=== PATIENT | female | born 1950 | race Caucasian/White ===

== ENCOUNTER 2017-06-28 20:05 | Emergency (ER) | payer MEDICARE, MEDICAID ==
[~2017-06-28] VITALS: Ht 157.5 cm; Wt 63.5 kg
[2017-06-28 20:05] VITALS: BP 149/82
[~2017-06-28 20:05] MED LIST: HYDR8TAB2 PO
--- NOTE | 2017-06-28 20:30 | NUR ---
PT REFUSED TO HAVE HER BLOOD SUGAR CHECKED.
== END 2017-06-28 20:50 | disposition home or self-care (01) ==
LOC: ER 20:09
DX: F11.20 Opioid dependence, uncomplicated (principal); R42 Dizziness and giddiness; G89.29 Other chronic pain; E11.9 Type 2 diabetes mellitus without complications; Z88.8 Allergy status to other drugs, medicaments and biological substances
CPT/HCPCS: 82962-TC; A4606; Z7610

== ENCOUNTER 2017-07-23 20:37 | Inpatient (IN) | payer MEDICARE ==
[~2017-07-23] VITALS: Ht 160 cm; Wt 60.3 kg
[2017-07-24] VITALS: BP 153/82
[2017-07-24] MEDS ORDERED: IV NS 0.9% 1,000 ML IV PRN (00:08)
[2017-07-24 00:25] VITALS: BP 153/82
--- NOTE | 2017-07-24 00:25 | NUR ---
MS GALINDO OPENING NOTES: RECEIVED PT FROM PARAMEDICS FROM [facility]. PT IS A/OX 3-4. PT HAS IV ON R AC #20G AND IS PATENT AND INTACT. PT COMPLAINS OF BILATERAL 5/10 FOOT PAIN. AWAITING FOR ORDERS TO BE PUT IN. BILATERAL LOWER LEGS ELEVATED SWELLING AND REDNESS IS NOTED. CALL LIGHT WITHIN PT'S REACH. HOB ELEVATED. BED KEPT IN LOW, LOCKED POSITION, AND SIDE RAILS X 2 UP. Addendum: 07/24/17 at 0318 by ALIREZA VAN RN PT RECEIVED ANCEF 2GM AT [facility] AT 1835. WAS ENDORSED FROM MATEO JAMES FROM [place].
[2017-07-24] MEDS ORDERED: ENOXAPARIN SODIUM 40 MG/0.4 ML DISP.SYRIN SQ SCH (00:30)
[2017-07-24] MEDS ORDERED: HYDROCODONE/APAP 5/325MG 1 EACH TABLET PO PRN (00:30)
[2017-07-24] MEDS ORDERED: ACETAMINOPHEN 325 MG TABLET PO PRN (00:30)
[2017-07-24] MEDS ORDERED: Z GUARD REMEDY 2 OZ OINT TP PRN (00:30)
[2017-07-24] MEDS ORDERED: MAG HYDROX/AL HYDROX/SIMETH 30 ML UDC PO PRN (00:30)
[2017-07-24] MEDS ORDERED: VANCOMYCIN 1 GM in IV D5W 250 ML IV SCH (00:30)
[2017-07-24] MEDS ORDERED: ZOLPIDEM TARTRATE 5 MG TABLET PO PRN (00:30)
[2017-07-24] MEDS ORDERED: MAGNESIUM HYDROXIDE 30 ML UDC PO PRN (00:30)
[2017-07-24] MEDS ORDERED: ONDANSETRON HCL/PF 4 MG/2 ML VIAL IVP PRN (00:30)
[2017-07-24] MEDS ORDERED: VANCOMYCIN 1 GM VIAL ONE (00:50)
[2017-07-24] MEDS ORDERED: PIPERACILLIN /TAZOBACTAM 2.25 G VIAL IV ONE (00:51)
--- NOTE | 2017-07-24 01:20 | NUR ---
MS RN NOTES: DR. DELON Rehman AT BEDSIDE.
--- NOTE | 2017-07-24 04:46 | NUR ---
MS RN NOTES: ZOSYN WAS MANUALLY ENTERED SINCE BAR GUN WOULD NOT SCAN MED. MED WAS OVERRODE BY CHARGE NURSE.
[2017-07-24] MEDS ORDERED: PIPERACILLIN /TAZOBACTAM 4.5 G in IV D5W 50 ML IV SCH (05:00)
--- NOTE | 2017-07-24 07:30 | NUR ---
MS/RN Patient received Patient received from operations supervisor 2nd shift. No needs at this time, call light within reach, bed in low setting. Will continue to monitor and ensure safety.
--- NOTE | 2017-07-24 07:31 | NUR ---
MS RN CLOSING NOTES: ALL NEEDS WERE ATTENDED AND ANTICIPATED FOR PT IS IN BED RESTING AND SITTING UP. PT IS A/OX3-4. NO SOB NOTED. NO S/S OF DISTRESS NOTED AT THIS TIME. PT NOT COMPLAINING OF PAIN AT THIS TIME. BILATERAL LOWER LEGS ELEVATED SWELLING AND REDNESS IS NOTED. PT HAS IV ON R AC #20G AND IS BEING INFUSED WITH NS AT 75ML/HR. CALL LIGHT WITHIN PT'S REACH. HOB ELEVATED. BED KEPT IN LOW, LOCKED POSITION, AND SIDE RAILS X 2 UP. ENDORSED TO AM NURSE FOR MANNY.
[2017-07-24 08:00] VITALS: BP 146/74
[2017-07-24] MEDS ORDERED: CLON2TAB4 PO (08:54)
[2017-07-24] MEDS ORDERED: OMEP40CA37 PO (08:54)
[2017-07-24] MEDS ORDERED: FURO40TA5 PO (08:54)
[2017-07-24] MEDS ORDERED: TRAZ150T75 PO (08:54)
[2017-07-24] MEDS ORDERED: LEVO137T2 PO (08:54)
[2017-07-24] MEDS ORDERED: ATOR20TA PO (08:54)
[2017-07-24] MEDS ORDERED: DULO60CA45 PO (08:55)
[2017-07-24] MEDS ORDERED: FEE PK DOSING 1 MIN EA MC ONE (09:21)
--- NOTE | 2017-07-24 09:30 | NUR ---
MS/RN OOB Patoent able to get out of bed with standby assist using FWW.
--- NOTE | 2017-07-24 10:49 | NUR ---
WOUND CARE CONSULT: PT PRESENTS WITH DRY WOUNDS TO BILATERAL GREAT TOES, PRESENT ON ADMISSION. RECOMMEND DPM CONSULT. PT REFUSED FULL SKIN ASSESSMENT. CURRENT TITUS SCORE IS 17. PODIATRY CONSULT CALLED BY DR REID. WILL SEE PRN. Addendum: 07/24/17 at 1053 by RAISA KAMARA WNDNU Amended: Links added.
--- NOTE | 2017-07-24 12:00 | NUR ---
MS/RN Zosyn Zosyn administered as ordered, no signs of infiltration seen around heplock insertion site.
--- NOTE | 2017-07-24 12:15 | NUR ---
MS/RN S/B Dr Long Seen by Dr Long - bedside debridement to be carried out of both great toes. Consent form signed by patient, supplies gathered and placed at bedside.
--- NOTE | 2017-07-24 12:30 | NUR ---
MS/RN Bedside debridement Debridement of bilateral great toes performed at bedside by Dr Long.
[2017-07-24] MEDS: PIPERACILLIN /TAZOBACTAM 3.375 G in IV D5W 50 ML IV SCH ×3 (12:42→23:02)
[2017-07-24 12:45] LABS: CALCIUM, SERUM 8.5 mg/dL (8.5-10.1); CREATININE 0.8 mg/dL (0.6-1.3); POTASSIUM 3.7 mmol/L (3.5-5.1)
--- NOTE | 2017-07-24 13:00 | NUR ---
MS/RN Vancomycin Vancomycin hung as ordered.
[2017-07-24] MEDS: VANCOMYCIN 1 GM in IV D5W 250 ML IV SCH (13:23)
--- NOTE | 2017-07-24 15:00 | NUR ---
MS/RN Vanco trough Vanco trough due 07/25 at 1200
--- NOTE | 2017-07-24 15:50 | NUR ---
MS/RN Personal care Full bedbath provided to patient per request.
[2017-07-24 16:00] VITALS: BP 146/75
--- NOTE | 2017-07-24 18:31 | NUR ---
MS/RN End note IVAB infusing as ordered. All needs attended. Will endorse to arts manager.
--- NOTE | 2017-07-24 19:40 | NUR ---
MS RN INITIAL NOTES PT IS IN BED AWAKE AND ALERT. BREATHING EVENLY AND UNLABORED ON ROOMAIR. NO SIGNS OF SOB OR DISTRESS. COMPLAINTS OF PAIN 8/10 IN LEFT FOOT, NORCO 10/325 TO BE ADMINISTERED. BED IS IN LOW AND LOCKED POSITION, CALL LIGHT WITHIN REACH. WILL CONTINUE TO MONITOR PT.
[2017-07-24] MEDS: HYDROCODONE/APAP 10/325MG 1 EA TABLET PO PRN (19:46)
[2017-07-24 20:00] VITALS: BP 138/78
[2017-07-25] MEDS: PIPERACILLIN /TAZOBACTAM 3.375 G in IV D5W 50 ML IV SCH ×3 (05:13→17:12)
--- NOTE | 2017-07-25 06:26 | NUR ---
MS RN CLOSING NOTES PT IS IN BED ALERT AND AWAKE, FORGETFUL. NO SIGNS OF SOB OR DISTRESS. WOUND CARE RENDERED. ALL NEEDS WERE ANTICIPATED AND MET. WILL ENDORSE TO DAY SHIFT
[2017-07-25 07:08] LABS: BASOPHILS % (AUTO) 0.6 % (0.0-2.0); EOSINOPHILS # (AUTO) 0.1 /CMM (0.0-0.7); EOSINOPHILS % (AUTO) 1.6 % (0.0-6.0); HEMATOCRIT 40 % (33-45); HEMOGLOBIN 13.3 g/dL (11.5-14.8); LYMPHOCYTES # (AUTO) 1.4 /CMM (0.8-4.8); LYMPHOCYTES % (AUTO) 19.4 % (20.0-44.0); MEAN CORPUSCULAR HEMOGLOBIN 30 PG (26.0-33.0); MEAN CORPUSCULAR HGB CONC 33 g/dl (31.0-36.0); MEAN CORPUSCULAR VOLUME 91 fL (82-100); MONOCYTES # (AUTO) 0.4 /CMM (0.1-1.30); MONOCYTES % (AUTO) 5.7 % (2.0-12.0); NEUTROPHILS # (AUTO) 5.4 /CMM (1.8-8.9); NEUTROPHILS % (AUTO) 72.7 % (43.0-81.0); PLATELET COUNT (AUTO) 334 /CMM (150-450); RDW COEFFICIENT OF VARIATION 15.6 (11.5-15.0); RED BLOOD CELL COUNT(AUTO) 4.44 MIL/uL (4.0-5.2); WHITE BLOOD COUNT (AUTO) 7.4 K/uL (4.3-11.0)
[2017-07-25 07:24] LABS: CALCIUM, SERUM 8.5 mg/dL (8.5-10.1); CREATININE 0.9 mg/dL (0.6-1.3); PHOSPHORUS 2.8 mg/dL (2.5-4.9); POTASSIUM 3.9 mmol/L (3.5-5.1)
[2017-07-25 07:36] LABS: THYROID STIMULATING HORMONE 15.088 uIU/mL (0.358-3.74)
[2017-07-25 08:00] VITALS: BP 138/75
[2017-07-25] MEDS: SILVER SULFADIAZINE CREAM 25 GM TUBE TP SCH (08:38)
[2017-07-25] MEDS: ENOXAPARIN SODIUM 40 MG/0.4 ML DISP.SYRIN SQ SCH (08:39)
[2017-07-25] MEDS: VANCOMYCIN 1 GM in IV D5W 250 ML IV SCH ×3 (13:05)
--- NOTE | 2017-07-25 14:54 | NUR ---
RN NOTES CALLED [facility] FOR DR REID TO REMIND HIM TO DO THE MEDICATION RECON FOR THE PATIENT.
[2017-07-25 16:00] VITALS: BP 132/64
--- NOTE | 2017-07-25 16:30 | NUR ---
RN NOTES CALLED [facility] TO REMIND DR REID OF MED RECON. WAITING FOR RETURN CALL.
[2017-07-25] MEDS: HYDROCODONE/APAP 10/325MG 1 EA TABLET PO PRN ×2 (17:14→21:58)
[2017-07-25] MEDS: LACTOBACILLUS RHAMNOSUS GG 1 EACH CAP.SPRINK PO SCH (17:14)
--- NOTE | 2017-07-25 19:30 | NUR ---
RN CLOSING NOTES NO SIGNIFICANT CHANGES IN PATIENT CONDITION THROUGHOUT THE SHIFT. NO SOB OR DISTRESS NOTED AT THIS TIME. PATIENT DENIES PAIN. DR REID DID NOT COMPLETE [employer]. BED IN A LOW POSITION, CALL LIGHT WITHIN PATIENT REACH, FAMILY IS AT THE BEDSIDE. WILL ENDORSE FOR MANNY. Addendum: 07/25/17 at 1932 by FRANKLIN SHEN RN PT REFUSED CONTINUOUS IV FLUIDS THROUGHOUT THE SHIFT. DR REID AWARE
--- NOTE | 2017-07-25 19:45 | NUR ---
MS/FAMILY INDEPENDENCE CASE MANAGER; RECEIVED PT IN BED AWAKE ALERT AND ORIENTED X 3. DENIES PAIN. BREATHING NON LABORED. HL ON RFA INTACT AND PATENT. BOTH FEET WOUND WITH DRESSING INTACT. BED ON LOWER POSITION AND LOCKED FOR SAFETY. SIDE RAILS ARE UP FOR SAFETY. PT REMINDED TO CALL FOR HELP AND CALL LIGHT WITHIN REACH. WILL CONTINUE TO MONITOR.
[2017-07-25 20:00] VITALS: BP 133/60
[2017-07-25] MEDS ORDERED: clonazePAM 1 MG TABLET PO PRN (20:00)
[2017-07-25] MEDS: ATORVASTATIN 10 MG TABLET PO SCH (22:01)
[2017-07-25] MEDS: TRAZODONE 50 MG TABLET PO SCH (22:56)
[2017-07-26] MEDS: PIPERACILLIN /TAZOBACTAM 3.375 G in IV D5W 50 ML IV SCH ×5 (00:32→23:57)
[2017-07-26] MEDS: VANCOMYCIN 1 GM in IV D5W 250 ML IV SCH ×2 (01:45→12:25)
--- NOTE | 2017-07-26 06:23 | NUR ---
MS/MANAGER SUSTAINABILITY; SLEPT FAIRLY LAST NIGHT. IV LINE INTACT AND PATENT. BREATHING NON LABORED. WILL CONTINUE TO THE BATHROOM. WILL ENNDORSE TO THE DAY SHIFT NURSE.
--- NOTE | 2017-07-26 07:05 | NUR ---
RN INITIAL NOTES REPORT RECEIVED AT THE BEDSIDE. PATIENT IS RESTING COMFORTABLY IN BED. NO SOB OR DISTRESS NOTED AT THIS TIME. PATIENT DENIES PAIN AT THIS TIME. BED IN A LOW POSITION, CALL LIGHT WITHIN PATIENT REACH. WILL CONTINUE TO MONITOR.
[2017-07-26 08:00] VITALS: BP 145/78
[2017-07-26] MEDS: FUROSEMIDE 40 MG TABLET PO SCH (08:17)
[2017-07-26] MEDS: LACTOBACILLUS RHAMNOSUS GG 1 EACH CAP.SPRINK PO SCH ×2 (08:17→17:02)
[2017-07-26] MEDS: LEVOTHYROXINE SODIUM 137 MCG TABLET PO SCH (08:17)
[2017-07-26] MEDS: DULOXETINE HCL 20 MG CAPSULE.DR PO SCH (08:18)
[2017-07-26] MEDS: ENOXAPARIN SODIUM 40 MG/0.4 ML DISP.SYRIN SQ SCH (08:20)
[2017-07-26] MEDS: SILVER SULFADIAZINE CREAM 25 GM TUBE TP SCH (08:25)
--- NOTE | 2017-07-26 11:09 | NUR ---
RN NOTES DRESSINGS CHANGED PER MD ORDER
[2017-07-26] MEDS: HYDROCODONE/APAP 10/325MG 1 EA TABLET PO PRN ×2 (12:27→22:39)
[2017-07-26 13:00] LABS: CALCIUM, SERUM 9.3 mg/dL (8.5-10.1); CREATININE 1.1 mg/dL (0.6-1.3); POTASSIUM 3.6 mmol/L (3.5-5.1)
[2017-07-26 16:00] VITALS: BP 137/74
--- NOTE | 2017-07-26 18:49 | NUR ---
RN CLOSING NOTES NO SIGNIFICANT CHANGES IN PATIENT CONDITION THROUGHOUT THE SHIFT. NO SOB OR DISTRESS NOTED AT THIS TIME. PATIENT DENIES PAIN. BED IN A LOW POSITION, CALL LIGHT WITHIN PATIENT REACH. WILL ENDORSE FOR MANNY.
--- NOTE | 2017-07-26 19:35 | NUR ---
MS/PROSTHODONTIST; RECEIVED PT IN BED AWAKE ALERT AND ORIENTED. DENIES PAIN. BREATHING NON LABORED AND EVEN. HL ON RFA INTACT. DRESSING ON BOTH FEET INTACT. BED ON LOWER POSITION AND LOCKED FOR SAFETY. SIDE RAILS ARE UP FOR SAFETY. PT REMINDED TO CALL FOR HELP AND CALL LIGHT WITHIN REACH. WILL CONTINUE TO MONITOR.
[2017-07-26 20:33] VITALS: BP 147/85
--- NOTE | 2017-07-26 22:40 | NUR ---
MS/PAPER WRAPPING MACHINE OPERATOR; C/O PAIN LT FOOT TOES WITH PAIN LEVEL OF 8 OUT OF 10. PT WANTS PAIN MED. NORCO 10-325 MG PO Q4 PRN GIVEN AT 2239 TOLERATED.
[2017-07-26] MEDS: ATORVASTATIN 10 MG TABLET PO SCH (22:41)
[2017-07-26] MEDS: TRAZODONE 50 MG TABLET PO SCH (23:03)
--- NOTE | 2017-07-26 23:40 | NUR ---
MS/SILK SCREENER; PT CHECKED SLEEPING AT THIS TIME. BREATHING NON LABORED AND EVEN. WILL CONTINUE TO MONITOR.
[2017-07-27] MEDS: VANCOMYCIN 1 GM in IV D5W 250 ML IV SCH ×2 (00:44→13:00)
--- NOTE | 2017-07-27 04:00 | NUR ---
MS/TOMAHAWK WEAPON SYSTEM OPERATOR; NOTED PT WOKE UP IV LINE ON RT ARM IS OUT. I ASKED THE PT THAT I NEED TO RE START A NEW IV LINE NAD SHE IS IT OK AT 0500. SO I SAID OK I WILL COME BACK AT 0500. PT WENT BACK TO SLEEP.
--- NOTE | 2017-07-27 05:30 | NUR ---
MS/FILM MAKER; NEW IV LINE RE STARTED ON RFA # 22 ANGIO CATH.
[2017-07-27] MEDS: PIPERACILLIN /TAZOBACTAM 3.375 G in IV D5W 50 ML IV SCH ×2 (05:56→12:35)
--- NOTE | 2017-07-27 06:34 | NUR ---
MS/RNFA; SLEPT FAIRLY LAST NIGHT. VOIDING AT THE BATHROOM. BREATHING NON LABORED. WILL CONTINUE TO MONITOR. WILL ENDORSE TO THE DAY SHIFT. CALL LIGHT WITHIN REACH.
[2017-07-27 08:00] VITALS: BP 162/90
--- NOTE | 2017-07-27 08:01 | NUR ---
RN OPENING NOTES RECEIVED PT AWAKE RESTING COMFORTABLY IN BED. PT IS AOX3 FORGETFUL. PT DENIES AND CP OR SOB. COMPLAINTS OF LEG PAIN 01/29. WILL IMPLEMENT APPROPRIATE INTERVENTIONS. PT AMBULATES WITH ASSISTANCE. RFA IV ACCESS 22G PATENT AND INTACT WITH NS RUNNING AT 75ML/HR. RESPIRATIONS EVEN AND UNLABORED. NO S/S OF ACUTE DISTRESS. BED LOCKED IN THE LOWEST POSITION WITH SIDE RAILS UP X2. CALL LIGHT WITHIN REACH. WILL CNOTINUE TO MONITOR, ASSESS AND EDUCATE PATIENT THROUGHOUT SHIFT.
[2017-07-27] MEDS: FUROSEMIDE 40 MG TABLET PO SCH (09:35)
[2017-07-27] MEDS: LEVOTHYROXINE SODIUM 137 MCG TABLET PO SCH (09:35)
[2017-07-27] MEDS: DULOXETINE HCL 20 MG CAPSULE.DR PO SCH (09:35)
[2017-07-27] MEDS: LACTOBACILLUS RHAMNOSUS GG 1 EACH CAP.SPRINK PO SCH (09:35)
[2017-07-27] MEDS: SILVER SULFADIAZINE CREAM 25 GM TUBE TP SCH (09:35)
[2017-07-27] MEDS: ENOXAPARIN SODIUM 40 MG/0.4 ML DISP.SYRIN SQ SCH (09:37)
--- NOTE | 2017-07-27 10:47 | NUR ---
RN NOTES PATIENT REQUESTING IV TO BE REMOVED. PATIENT REFUSING IV HYDRATION. IV REMOVED FROM RIGHT FOREARM 22G. WILL EDUCATE PATIENT.
[2017-07-27] MEDS: HYDROCODONE/APAP 10/325MG 1 EA TABLET PO PRN (11:07)
--- NOTE | 2017-07-27 12:20 | NUR ---
RN NOTES NEW IV PLACED IN THE RIGHT HAND 22G . IV PATENT AND INTACT. ONE ATTEMPT. PATIENT TOLERATED WELL. WILL CONTINUE TO MONITOR.
[2017-07-27 13:18] LABS: CALCIUM, SERUM 9.1 mg/dL (8.5-10.1); CREATININE 1.1 mg/dL (0.6-1.3)
--- NOTE | 2017-07-27 13:19 | NUR ---
RN NON ADMIN NOTES VANCO TROUGH 22. REPORTED TO PHARMACISTS JOHNNY. PHARMACISTS ORDERED TO HOLD VANCO. WILL CARRY OUT.
--- NOTE | 2017-07-27 13:37 | NUR ---
RN NOTES PATIENT REFUSED TO BE DISCHARGED TO [facility]. CASE MANAGED NOTIFIED. PATIENT TO BE DISCHARGED TO [facility].
[2017-07-27] MEDS ORDERED: SULF1TAB48 PO (15:17)
[2017-07-27 15:48] VITALS: BP 145/82
--- NOTE | 2017-07-27 16:00 | NUR ---
RN CLOSING NOTES PATIENT PICKED UP BY [facility]. AMBULANCE LEFT WITHOUT ALLOWING FOR PATIENT TO SIGN DOCUMENTATION. CASE MANAGEMENT AND MD AWARE. PATIENT DISCHARGED IN STABLE CONDITION TO [facility]. REPORT GIVEN TO MATEO TRENT AT [facility] FOR MANNY.
== END 2017-07-27 15:15 | DRG 623 ==
LOC: MED 07-24
PROC: 0JBR0ZZ Excision of Left Foot Subcutaneous Tissue and Fascia, Open Approach (ICD-10-PCS; principal; 2017-07-24)
PROC: 0JBQ0ZZ Excision of Right Foot Subcutaneous Tissue and Fascia, Open Approach (ICD-10-PCS; 2017-07-24)
DX: E11.621 Type 2 diabetes mellitus with foot ulcer (principal); L03.116 Cellulitis of left lower limb; L97.509 Non-pressure chronic ulcer of other part of unspecified foot with unspecified severity; E11.42 Type 2 diabetes mellitus with diabetic polyneuropathy; L03.115 Cellulitis of right lower limb; E66.9 Obesity, unspecified; G89.4 Chronic pain syndrome; Z68.23 Body mass index [BMI] 23.0-23.9, adult; Z59.0 Homelessness; Z76.5 Malingerer [conscious simulation]; D64.9 Anemia, unspecified; M20.10 Hallux valgus (acquired), unspecified foot; M21.00 Valgus deformity, not elsewhere classified, unspecified site
CPT/HCPCS: 36415; 73630-TC; 80048-TC; 80061-TC; 80202-TC; 83735-TC; 84100-TC; 84443-TC; 85025-TC; 87081-TC; 93970-TC; A6402; A6403; J1650; J2543; J3370; J7030; J7060; Z7610

== ENCOUNTER 2017-12-30 15:04 | Emergency (ER) | payer MEDICARE, MEDICAID ==
[~2017-12-30] VITALS: Ht 162.6 cm; Wt 63.5 kg
[~2017-12-30 15:04] MED LIST changes: +ATOR20TA PO; +CLON2TAB4 PO; +DULO60CA45 PO; +FURO40TA5 PO; +LEVO137T2 PO; +OMEP40CA37 PO; +SULF1TAB48 PO; +TRAZ150T75 PO
[2017-12-30 15:07] VITALS: BP 135/85
--- NOTE | 2017-12-30 16:28 | NUR ---
DR ARANGO AT BEDSIDE FOR EVAL.
[2017-12-30 16:40] LABS: BASOPHILS # (AUTO) 0.1 /CMM (0.0-0.2); BASOPHILS % (AUTO) 1.2 % (0.0-2.0); EOSINOPHILS # (AUTO) 0.1 /CMM (0.0-0.7); EOSINOPHILS % (AUTO) 2.2 % (0.0-6.0); HEMATOCRIT 37 % (33-45); HEMOGLOBIN 12.7 g/dL (11.5-14.8); LYMPHOCYTES # (AUTO) 2.2 /CMM (0.8-4.8); LYMPHOCYTES % (AUTO) 36.1 % (20.0-44.0); MEAN CORPUSCULAR HEMOGLOBIN 29 PG (26.0-33.0); MEAN CORPUSCULAR HGB CONC 34 g/dl (31.0-36.0); MEAN CORPUSCULAR VOLUME 86 fL (82-100); MONOCYTES # (AUTO) 0.3 /CMM (0.1-1.30); MONOCYTES % (AUTO) 4.5 % (2.0-12.0); NEUTROPHILS # (AUTO) 3.4 /CMM (1.8-8.9); PLATELET COUNT (AUTO) 274 /CMM (150-450); RDW COEFFICIENT OF VARIATION 14.8 (11.5-15.0); RED BLOOD CELL COUNT(AUTO) 4.34 MIL/uL (4.0-5.2); WHITE BLOOD COUNT (AUTO) 6.1 K/uL (4.3-11.0)
[2017-12-30 16:53] LABS: CALCIUM, SERUM 9.1 mg/dL (8.5-10.1); CARBON DIOXIDE 28 mmol/L (21-32); CHLORIDE 106 mmol/L (98-107); CREATININE 0.9 mg/dL (0.6-1.3); GLUCOSE 96 mg/dL (74-106); POTASSIUM 3.9 mmol/L (3.5-5.1); SODIUM SERUM 142 mmol/L (136-145); UREA NITROGEN, BLOOD 17 mg/dL (7-18)
[2017-12-30 16:59] LABS: ACETAMINOPHEN 24 ug/ml (10-30); ALANINE AMINOTRANSFERASE 24 U/L (12-78); ALBUMIN 3.3 g/dL (3.4-5.0); ALKALINE PHOSPHATASE 82 U/L (46-116); ASPARTATE AMINOTRANSFERASE 19 U/L (15-37); BILIRUBIN,DIRECT 0.1 mg/dL (0.0-0.2); BILIRUBIN,TOTAL 0.2 mg/dL (0.2-1.0); TOTAL PROTEIN, SERUM 6.6 g/dL (6.4-8.2)
[2017-12-30 17:07] LABS: SALICYLATE 1.8 mg/dL (2.8-20.0)
--- NOTE | 2017-12-30 17:17 | NUR ---
PT STILL UNABLE TO PROVIDE URINE SAMPLE. STATING " I STILL DONT NEED TO GO.."
[2017-12-30 17:28] LABS: ALCOHOL, BLOOD < 3 mg/dL (0-0)
[2017-12-30 18:24] LABS: APPEARANCE,URINE Clear (CLEAR); BILIRUBIN,URINE Negative (NEGATIVE); BLOOD, URINE Negative Ery/uL (NEGATIVE); COLOR,URINE Yellow (YELLOW); KETONES,URINE Negative (NEGATIVE); LEUKOCYTE ESTERASE ,URINE Negative (NEGATIVE); NITRITE, URINE Negative (NEGATIVE); PROTEIN,URINE Negative (NEGATIVE); UGLUCOSE Negative (NEGATIVE); UROBILINOGEN,URINE 0.2 EU/dL (0.2)
--- NOTE | 2017-12-30 18:34 | NUR ---
PT MEDICALLY AND PSYCH CLEARED. DENIES SI. D/C HOME IN STABLE CONDITION.
== END 2017-12-30 18:34 | disposition home or self-care (01) ==
LOC: ER 15:08
DX: F60.3 Borderline personality disorder (principal); F11.20 Opioid dependence, uncomplicated; I10 Essential (primary) hypertension; K21.9 Gastro-esophageal reflux disease without esophagitis; E11.9 Type 2 diabetes mellitus without complications; Z98.890 Other specified postprocedural states; Z88.8 Allergy status to other drugs, medicaments and biological substances
CPT/HCPCS: 36415; 80048-TC; 80076-TC; 80305; 81000-TC; 85025-TC; A4606; G0480; Z7610

== ENCOUNTER 2017-12-31 01:58 | Emergency (ER) | payer MEDICARE, MEDICAID ==
[~2017-12-31] VITALS: Ht 157.5 cm; Wt 54.4 kg
--- NOTE | 2017-12-31 02:00 | NUR ---
67 YO FEMALE BB RA FROM HOME. PATIENT IS ALERT AND ORIENTED X 3, STATES SHE TOOK SOME SLEEPING PILLS. PATIENT AMBULATED TO ER BED, SKIN WARM AND DRY, RESP EVEN AND UNLABORED. PATIENT. AWAITING ORDERS FROM PROVIDER, WILL CONTINUE TO MONITOR
--- NOTE | 2017-12-31 03:56 | NUR ---
PATIENT STATES SHE WANTS TO WAIT FOR DIRECTOR OF RADIOLOGY. TOLD PATIENT SHE NEEDS TO WAIT IN THE WAITING ROOM UNTIL THEY ARE HERE, THEY GET HERE ABOUT 9AM. PATIENT AMBULATED TO ER WAITING ROOM WITH STEADY AGIT. NO DISTRESS NOTED AT THIS TIME. SKIN WARM AND DRY, RESP EVEN AND UNLABORED. WILL CONTINUE TO MONITOR
[2017-12-31 04:03] VITALS: BP 136/71
--- NOTE | 2017-12-31 15:45 | NUR ---
Water/Wastewater Project Engineer Consult was requested from the ER regarding homelessness. Pt is a 67 year old female who was in the ER waiting room for resources. Pt was oriented x4. Per pt, she is unable to go back to her board & care. Statistics Manager spoke to Keshawn from case management in regards to finding the pt. a placement. KALEY spoke with MATEO Todd to inform him of pt.s disposition. Plan: Case Management will find pt. placement.
== END 2017-12-31 04:04 | disposition home or self-care (01) ==
LOC: ER 01:59
DX: F11.20 Opioid dependence, uncomplicated (principal); G89.29 Other chronic pain; M79.604 Pain in right leg; M79.605 Pain in left leg; E11.9 Type 2 diabetes mellitus without complications; I10 Essential (primary) hypertension; K21.9 Gastro-esophageal reflux disease without esophagitis; Z88.8 Allergy status to other drugs, medicaments and biological substances
CPT/HCPCS: 99283; A4606; Z7610

== ENCOUNTER 2018-01-11 11:01 | Outpatient (CLI) | payer MEDICARE, MEDICAID | END 2018-01-11 23:59 | LOC: MSC 11:01 | PROVIDERS: ATTEND Anesthesiology | DX: M79.673 Pain in unspecified foot (principal); G56.43 Causalgia of bilateral upper limbs; Z79.891 Long term (current) use of opiate analgesic; E11.9 Type 2 diabetes mellitus without complications; I10 Essential (primary) hypertension ==

== ENCOUNTER 2022-10-06 23:00 | Inpatient (IN) | payer MEDICARE, MEDICAID ==
[~2022-10-06] VITALS: Ht 165.1 cm; Wt 75.7 kg
[~2022-10-06 23:00] MED LIST changes: +CLON2TAB11 PO; -CLON2TAB4 PO; +OMEP40CA21 PO; -OMEP40CA37 PO
--- NOTE | 2022-10-06 23:55 | NUR ---
COVID ANTIGEN SWAB COLLECTED AND SENT TO LAB
--- NOTE | 2022-10-07 | NUR ---
GAYATRI LAPWilliam FROM STRE[address] PUT ON 5150 HOLD FOR GDR. PER [employer] "SHE GOT KICKED OUT OF RESIDENCE, HAS BEEN OUTSIDE NOT EATING FOR 2 DAYS" PT A/OX2/3. TOLERATING R/A WELL WITH NO RESP DISTRESS. RR EVEN AND NONLABORED. AMBULATORY WITH STEADY GAIT. SAFETY MEASURES IN PLACE.
--- NOTE | 2022-10-07 00:20 | NUR ---
CLIMATOLOGY PROFESSOR AT PT'S BEDSIDE
--- NOTE | 2022-10-07 00:23 | NUR ---
URINE COLLECTED AND SENT TO LAB
[2022-10-07 00:27] LABS: BASOPHILS % (AUTO) 0.5 % (0.0-2.0); HEMATOCRIT 49 % (33-45); HEMOGLOBIN 15.5 g/dL (11.5-14.8); LYMPHOCYTES # (AUTO) 1.6 K/uL (0.8-4.8); LYMPHOCYTES % (AUTO) 17.9 % (20.0-44.0); MEAN CORPUSCULAR HGB CONC 32 g/dl (31.0-36.0); MEAN CORPUSCULAR VOLUME 88 fL (82-100); MONOCYTES # (AUTO) 0.6 K/uL (0.1-1.30); MONOCYTES % (AUTO) 6.5 % (2.0-12.0); NEUTROPHILS # (AUTO) 6.6 K/uL (1.8-8.9); NEUTROPHILS % (AUTO) 74.1 % (43.0-81.0); PLATELET COUNT (AUTO) 259 K/uL (150-450); RED BLOOD CELL COUNT(AUTO) 5.59 MIL/uL (4.0-5.2); WHITE BLOOD COUNT (AUTO) 8.9 K/uL (4.3-11.0)
[2022-10-07 00:37] LABS: CARBON DIOXIDE 32 mmol/L (21-32); CHLORIDE 105 mmol/L (98-107); CREATININE 0.9 mg/dL (0.6-1.3); GLUCOSE 103 mg/dL (74-106); POTASSIUM 3.5 mmol/L (3.5-5.1); SODIUM SERUM 140 mmol/L (136-145); UREA NITROGEN, BLOOD 19 mg/dL (7-18)
[2022-10-07 00:40] LABS: BILIRUBIN,URINE 1+ (NEGATIVE); COLOR,URINE YELLOW (YELLOW); LEUKOCYTE ESTERASE ,URINE NEGATIVE (NEGATIVE); NITRITE, URINE NEGATIVE (NEGATIVE); PH,URINE 5.5 (5.0-8.0); PROTEIN,URINE TRACE mg/dl (NEGATIVE); UGLUCOSE NEGATIVE (NEGATIVE); UROBILINOGEN,URINE 0.2 EU/dL (0.2)
[2022-10-07 00:41] LABS: ALANINE AMINOTRANSFERASE 25 U/L (12-78); ALBUMIN 3.9 g/dL (3.4-5.0); ALCOHOL, BLOOD < 3 mg/dL (0-0); ALKALINE PHOSPHATASE 121 U/L (46-116); ASPARTATE AMINOTRANSFERASE 26 U/L (15-37); BILIRUBIN,DIRECT 0.1 mg/dL (0.0-0.2); BILIRUBIN,TOTAL 0.5 mg/dL (0.2-1.0); TOTAL PROTEIN, SERUM 7.7 g/dL (6.4-8.2)
[2022-10-07 00:43] LABS: ACETAMINOPHEN 0 ug/ml (10-30)
[2022-10-07 01:25] LABS: BACTERIA,URINE Rare /HPF (None Seen); SQUAMOUS EPITHELIAL CELL,UR Few /HPF (None Seen)
--- NOTE | 2022-10-07 02:15 | NUR ---
PT SLEEPING. RR EVEN AND NONLABORED. ALL NEEDS MET AT THIS TIME. SAFETY MEASURES IN PLACE.
--- NOTE | 2022-10-07 03:03 | NUR ---
crisis team paged
--- NOTE | 2022-10-07 06:35 | NUR ---
RONALDO CRISIS TEAM AT PT'S BEDSIDE
--- NOTE | 2022-10-07 10:15 | NUR ---
bed assigned, 212.a, admitting aware
--- NOTE | 2022-10-07 10:20 | NUR ---
REPORT GIVEN TO LEAH GALINDO OF [employer]
[2022-10-07 11:30] VITALS: BP 121/78
[2022-10-07] MEDS ORDERED: BLOOD SUGAR DIAGNOSTIC 1 EACH STRIP IN ONE (11:30)
[2022-10-07] MEDS ORDERED: LORAZEPAM 0.5 MG TABLET PO PRN (11:30)
[2022-10-07] MEDS ORDERED: MAGNESIUM HYDROXIDE 30 ML UDC PO PRN (11:30)
[2022-10-07] MEDS ORDERED: MAG HYDROX/AL HYDROX/SIMETH 30 ML UDC PO PRN (11:30)
[2022-10-07] MEDS ORDERED: ACETAMINOPHEN 325 MG TABLET PO PRN (11:30)
--- NOTE | 2022-10-07 11:30 | NUR ---
GPS/RN RECEIVED PT ON 5149 FOR GD FOUND BY POLICE ON THE [address]RE[address]. AMBULATORY WITH WALKER, VSS, NO ACUTE DISTRESS. UNCOOPERATIVE, REFUSED BODY ASSESSMENT, TO SIGN ADMITTING FORMS. ON FACE TO FACE ASSESSMENT NO SI OR HI REPORTED. PROPERTY CHECKED FOR CONTRABAND. ADMITTING ORDERS FROM DR DANIEL RECEIVED AND CARRIED OUT. DR GRIFFIN MADE AWARE OF ADMISSION.
--- NOTE | 2022-10-07 12:49 | NUR ---
GPS/RN PT CLAIMED TO BE FULLY VACCINATED FOR COVID 19 AND FLU SEASON HOWEVER NO DATES OR NAME OF VACCINE PT REMEMBERED.
--- NOTE | 2022-10-07 15:36 | NUR ---
GPS/RN DR PRAKASH CONTACTED VIA HOSPITAL PHONE TO [facility].
[2022-10-07 16:00] VITALS: BP 143/90
[2022-10-07] MEDS ORDERED: TRAZODONE 50 MG TABLET PO SCH (17:00)
[2022-10-07] MEDS ORDERED: DULOXETINE HCL 30 MG CAPSULE.DR PO SCH (17:00)
[2022-10-07] MEDS: DIVALPROEX SODIUM 125 MG CAP.SPRINK PO SCH ×3 (17:30→20:25)
--- NOTE | 2022-10-07 17:50 | NUR ---
NURSE NOTE: PT AGITATED. YELLING. REQUESTED ATIVAN AT THIS TIME. ADMIN ORDERED. PT DARLIN WELL. WILL CONT TO MONITOR.
[2022-10-07 20:00] VITALS: BP 151/86
[2022-10-07] MEDS: HYDROCODONE/APAP 10/325MG TABLET PO PRN (20:27)
[2022-10-07] MEDS: clonazePAM 0.5 MG TABLET PO PRN (21:52)
[2022-10-07] MEDS: ATORVASTATIN 10 MG TABLET PO SCH (21:52)
[2022-10-08] MEDS: HYDROCODONE/APAP 10/325MG TABLET PO PRN ×2 (03:19→09:39)
--- NOTE | 2022-10-08 03:28 | NUR ---
This patient is refusing to take the medications as prescribed. She is claiming that she takes 8mg of dilaudid at one time. When [facility]co, she initially refused, but decded to take it anyway. Then she threatened to josselyn the hospital for not administering the correct pain medication. She has slept quietly throughout the night requesting more pain meds in the AM. She currently has an elevated bp but no bp med was ordered. F/U planned.
[2022-10-08] MEDS: LEVOTHYROXINE SODIUM 137 MCG TABLET PO SCH (07:53)
[2022-10-08] MEDS: PANTOPRAZOLE 40 MG TABLET.DR PO SCH (07:53)
[2022-10-08 08:00] VITALS: BP 141/88
[2022-10-08 08:07] LABS: CREATININE 0.8 mg/dL (0.6-1.3)
[2022-10-08 08:15] LABS: CHOLESTEROL 118 mg/dL (<200); HDL CHOLESTEROL 45 mg/dL (40-60); LDL 66 mg/dL (0-99); TRIGLYCERIDES 70 mg/dL (30-150)
[2022-10-08] MEDS: FUROSEMIDE 40 MG TABLET PO SCH (08:51)
[2022-10-08] MEDS: DIVALPROEX SODIUM 125 MG CAP.SPRINK PO SCH ×2 (09:00→21:00)
[2022-10-08] MEDS: clonazePAM 0.5 MG TABLET PO PRN (09:39)
--- NOTE | 2022-10-08 09:40 | NUR ---
NURSE NOTE: PT VERY AGITATED. SAYING THAT SHE IS IN A LOT OF PAIN. REQUESTED DILAUDID, BUT INFORMED HER THAT SHE ONLY HAS NORCO AT THIS TIME. SHE REQUESTED CLONAZEPAM FOR ANXIETY AND HER PAIN MEDICATION. BOTH ADMINISTERED ORDERED. WILL CONT TO MONITOR.
--- NOTE | 2022-10-08 10:40 | NUR ---
NURSE NOTE: PT SLEEPING AT THIS TIME. ATIVAN AND NORCO EFFECTIVE AT THIS TIME. NO S/S OF PAIN OR ANXIETY. WILL CONT TO MONITOR.
[2022-10-08] MEDS: HYDROMORPHONE HCL 8 MG PO PRN ×2 (13:13→20:06)
--- NOTE | 2022-10-08 13:13 | NUR ---
NURSE NOTE: PT SCREAMING AT THIS TIME. STATING THAT SHE IS IN A LOT OF PAIN. DILAUDID NOW AVAILABLE. ADMIN ORDERED. PT DARLIN WELL, WILL CONT TO MONITOR.
[2022-10-08] MEDS ORDERED: KEY,NONCONTROL,TO KEEP IN PYXI 1 EA MC ONE ×3 (13:18→19:54)
--- NOTE | 2022-10-08 14:13 | NUR ---
NURSE NOTE: PT CALM AT THIS TIME. STATES THAT SHE FEELS BETTER. WILL CONT TO MONITOR.
[2022-10-08] MEDS ORDERED: LINA145C PO (14:59)
[2022-10-08] MEDS ORDERED: HYDR25SU33 RC (14:59)
[2022-10-08] MEDS ORDERED: NA P133E RC (14:59)
[2022-10-08] MEDS ORDERED: FERR325T23 PO (14:59)
[2022-10-08] MEDS ORDERED: PANT40TA2 PO (14:59)
[2022-10-08] MEDS ORDERED: ACET-2605 PO (14:59)
[2022-10-08] MEDS ORDERED: POLY17PO4 PO (14:59)
[2022-10-08] MEDS ORDERED: OXYC10TA49 PO (14:59)
[2022-10-08] MEDS ORDERED: TEMA15CA PO (14:59)
[2022-10-08] MEDS ORDERED: BENA20TA9 PO (14:59)
[2022-10-08] MEDS ORDERED: PSYL3.4P6 PO (14:59)
[2022-10-08] MEDS ORDERED: MAGN400O6 PO (14:59)
[2022-10-08] MEDS ORDERED: LOPE2TAB25 PO (14:59)
[2022-10-08] MEDS ORDERED: BISA10SU11 RC (14:59)
[2022-10-08] MEDS ORDERED: ASPI-1169 PO (14:59)
[2022-10-08] MEDS ORDERED: SENN-261 PO (14:59)
[2022-10-08] MEDS ORDERED: MULT-447 PO (14:59)
[2022-10-08] MEDS ORDERED: LORA-259 PO (14:59)
[2022-10-08] MEDS ORDERED: DOCU-141 PO (14:59)
[2022-10-08] MEDS ORDERED: LACT10SO3 PO (14:59)
[2022-10-08] MEDS ORDERED: OXYC-128 PO (14:59)
[2022-10-08] MEDS ORDERED: CALC500T63 PO (14:59)
[2022-10-08] MEDS ORDERED: DIPH25CA51 PO (14:59)
[2022-10-08] MEDS ORDERED: GUAI100S11 PO (14:59)
[2022-10-08] MEDS ORDERED: ACET-868 PO (14:59)
[2022-10-08] MEDS ORDERED: ACETAMINOPHEN 325 MG TABLET PO PRN (15:30)
[2022-10-08] MEDS ORDERED: CALCIUM CARBONATE 500 MG TAB.CHEW PO PRN (15:30)
[2022-10-08] MEDS ORDERED: diphenhydrAMINE HCL 25 MG CAPSULE PO PRN (15:30)
[2022-10-08] MEDS ORDERED: ACETAMINOPHEN ES 500 MG TABLET PO PRN (15:30)
[2022-10-08] MEDS ORDERED: BISACODYL SUPP (10 MG) 10 MG/SUPP.RECT SUPP.RECT RC PRN (15:30)
[2022-10-08] MEDS ORDERED: MAGNESIUM HYDROXIDE 30 ML UDC PO PRN (15:30)
[2022-10-08 16:00] VITALS: BP 130/72
[2022-10-08] MEDS ORDERED: HYDROCORTISONE ACETATE 25 MG/SUPP.RECT SUPP.RECT RC PRN (16:00)
[2022-10-08] MEDS: LACTULOSE 10 G/15 ML UDC (PYXIS) PO SCH (16:19)
[2022-10-08] MEDS: FERROUS SULFATE (325 MG) 325 MG/TAB TABLET PO SCH (17:15)
[2022-10-08] MEDS: SENNOSIDES 8.6 MG TABLET PO SCH (18:14)
[2022-10-08] MEDS: DOCUSATE SODIUM 100 MG CAPSULE PO SCH (18:14)
--- NOTE | 2022-10-08 20:20 | NUR ---
Pt c/o BLE pain 07/01. Dilaudid 8 mg po prn given as ordered. Will continue to monitor.
[2022-10-08 20:40] VITALS: BP 138/70
[2022-10-08] MEDS: ATORVASTATIN 10 MG TABLET PO SCH (21:02)
[2022-10-08] MEDS: TEMAZEPAM 7.5 MG CAPSULE PO PRN (21:02)
--- NOTE | 2022-10-08 21:02 | NUR ---
Pt c/o insomnia. Least restrictive measures ineffective. Restoril 7.5 mg po prn given as ordered. Will continue to monitor.
--- NOTE | 2022-10-08 21:25 | NUR ---
Post 1 hr Dilaudid effective. IA 10/31. Will continue to monitor.
[2022-10-08] MEDS: QUETIAPINE FUMARATE 25 MG TABLET PO SCH (22:00)
--- NOTE | 2022-10-08 22:09 | NUR ---
Post 1 hr Restoril effective. Pt asleep in bed easy to arouse. Frequent visual check done for safety. Will continue to monitor.
--- NOTE | 2022-10-08 22:10 | NUR ---
Pt refused PM medications Depakote and Seroquel. Explained risk and benefits. Offered x 3 and still refused. Pt states, " i dont take those medications and i dont want to take those medications." Charge nurse aware. Will endorse to next shift.
[2022-10-09] MEDS ORDERED: KEY,NONCONTROL,TO KEEP IN PYXI 1 EA MC ONE ×5 (00:14→22:15)
[2022-10-09] MEDS: HYDROMORPHONE HCL 8 MG PO PRN ×6 (00:18→22:22)
--- NOTE | 2022-10-09 00:21 | NUR ---
Pt c/o BLE pain 05/31. Respirations 18. Dilaudid 8 mg po prn given as ordered. Will continue to monitor.
--- NOTE | 2022-10-09 01:21 | NUR ---
Post 1 hr dilaudid effective. KS 1/10. Frequent visual check done for safety. Will continue to monitor.
--- NOTE | 2022-10-09 03:54 | NUR ---
Pt awake and requested for medication Lactulose 20 g /30 ml. Explained to pt that lactulose is her routine medication and the next dose is due at 9am. Pt got agitated and started yelling, "why cant i have my lactulose now, at home i take it at night.". Explained to pt i have to follow the order and next dose is 9am. Pt finally calm down and agreed to wait till next dose.
--- NOTE | 2022-10-09 04:25 | NUR ---
Pt c/o BLE pain 07/01. Pt agitated and yelling stating, " why are you late with my Dilaudid." Explained to pt medication is q 4 hrs prn and must be requested. Pt is a med seeker and demands medications right away and gets agitated easily. Dilaudid 8 mg po prn given as ordered. RR 19. Will continue to monitor.
--- NOTE | 2022-10-09 05:29 | NUR ---
Post 1 hr dilaudid effective. Pt asleep in bed easy to arouse. NH 0/10. Frequent visual check done for safety. Will continue to monitor. Will endorse to next shift.
[2022-10-09] MEDS: LEVOTHYROXINE SODIUM 137 MCG TABLET PO SCH (07:27)
[2022-10-09] MEDS: PANTOPRAZOLE 40 MG TABLET.DR PO SCH ×2 (07:27→07:30)
[2022-10-09 08:00] VITALS: BP 131/69
[2022-10-09] MEDS: MULTIVIT W/MINERALS 1 TAB TABLET PO SCH (08:38)
[2022-10-09] MEDS: FUROSEMIDE 40 MG TABLET PO SCH (08:38)
[2022-10-09] MEDS: DIVALPROEX SODIUM 125 MG CAP.SPRINK PO SCH ×2 (08:38→21:00)
[2022-10-09] MEDS: FERROUS SULFATE (325 MG) 325 MG/TAB TABLET PO SCH ×2 (08:38→17:55)
[2022-10-09] MEDS: ASPIRIN 81 MG TAB.CHEW PO SCH (08:39)
[2022-10-09] MEDS: LACTULOSE 10 G/15 ML UDC (PYXIS) PO SCH ×3 (08:39→17:55)
[2022-10-09] MEDS: POLYETHYLENE GLYCOL 3350 17 GM POWD.PACK PO SCH (08:40)
[2022-10-09] MEDS: BENAZEPRIL HCL 20 MG TABLET PO SCH (08:49)
[2022-10-09] MEDS: LINACLOTIDE 145 MCG PO SCH (08:49)
--- NOTE | 2022-10-09 08:49 | NUR ---
NURSE NOTE: PT STATED SHE WAS IN A LOT OF PAIN 07/01. REQUESTED DILAUDID. ADMINISTERED ORDERED. PT DARLIN WELL. WILL CONT TO MONITOR.
[2022-10-09] MEDS ORDERED: [UNRECOGNIZED DRUG - OTHER] PO SCH (09:00)
--- NOTE | 2022-10-09 10:49 | NUR ---
NURSE NOTE: PT SAYS PAIN IS SUBSIDED. DILAUDED EFFECTIVE. WILL CONT TO MONITOR.
--- NOTE | 2022-10-09 12:49 | NUR ---
NURSE NOTE: PT IN PAIN AT9/10. REQUESTED DILAUDID. ADMINISTERED ORDERED. WILL CONT TO MONITOR.
--- NOTE | 2022-10-09 13:02 | NUR ---
KALEY Initial Discharge Plan: Patient will need placement. Pt does not want any family to be contacted. Pt would want this poem writer to find her placement. KALEY will work with the MD, family, and treatment team to help coordinate and find appropriate placement.
--- NOTE | 2022-10-09 13:02 | NUR ---
Treatment Plan: Pt refused to sign treatment plan and was suspicious.
--- NOTE | 2022-10-09 13:02 | NUR ---
SW Note: Pt does not want any family or friends to be notified.
--- NOTE | 2022-10-09 13:03 | NUR ---
KALEY Clinical Note: Pt placed on a 5150 hold for GD. Pt was found on the streets and had not been eating for days. Patient will need placement. Pt does not want any family to be contacted. Pt would want this parts data writer to find her placement. Pt is agreeable of this parts data writer to find her placement.
--- NOTE | 2022-10-09 13:49 | NUR ---
NURSE NOTE. PT RESTING AT THIS TIME. NO S/S OF PAIN. DILAUDID EFFECTIVE. WILL CONT TO MONITOR.
[2022-10-09 16:00] VITALS: BP 127/77
[2022-10-09] MEDS: SENNOSIDES 8.6 MG TABLET PO SCH (17:55)
[2022-10-09] MEDS: DOCUSATE SODIUM 100 MG CAPSULE PO SCH (17:55)
--- NOTE | 2022-10-09 18:00 | NUR ---
NURSE NOTE: PT REFUSED PSYCH MEDS DURING SHIFT.
--- NOTE | 2022-10-09 18:06 | NUR ---
NURSE NOTE: PT C/O PAIN AT LEVEL 9/10. REQUESTED DILAUDID. ADMINISTERED ORDERED. PT DARLIN WELL. WILL CONT TO MONITOR.
[2022-10-09 20:28] VITALS: BP 152/97
[2022-10-09] MEDS: TEMAZEPAM 7.5 MG CAPSULE PO PRN (21:06)
[2022-10-09] MEDS: ATORVASTATIN 10 MG TABLET PO SCH (21:06)
[2022-10-09] MEDS: QUETIAPINE FUMARATE 25 MG TABLET PO SCH (21:13)
--- NOTE | 2022-10-09 22:00 | NUR ---
RN NOTE PATIENT REFUSED SCHEDULED MEDS FOR TONIGHT SEROQUEL AND DEPAKOTE. EDUCATED PATIENT REGARDING MEDICATION COMPLIANCE PATIENT STATED "NO, I DON'T WANT IT". PATIENT CONTINUED TO REFUSE. OFFERED X3.
[2022-10-10] MEDS: clonazePAM 0.5 MG TABLET PO PRN ×2 (00:54→15:49)
[2022-10-10] MEDS: HYDROMORPHONE HCL 8 MG PO PRN ×4 (03:03→19:58)
[2022-10-10] MEDS ORDERED: KEY,NONCONTROL,TO KEEP IN PYXI 1 EA MC ONE (07:21)
[2022-10-10] MEDS: PANTOPRAZOLE 40 MG TABLET.DR PO SCH ×2 (07:29→07:49)
[2022-10-10] MEDS: LEVOTHYROXINE SODIUM 137 MCG TABLET PO SCH (07:29)
--- NOTE | 2022-10-10 07:30 | NUR ---
NURSE NOTE: POT C/O PAIN AT LEVEL9/10. REQUESTED DILAUDID. ADMINISTERED ORDERED. PT DARLIN WELL. WILL CONT TO MONITOR.
[2022-10-10 08:00] VITALS: BP 129/94
--- NOTE | 2022-10-10 08:30 | NUR ---
NURSE NOTE: PT CALM. STATED SHE'S FEELING BETTER. WILL CONT TO MONITOR.
[2022-10-10] MEDS: POLYETHYLENE GLYCOL 3350 17 GM POWD.PACK PO SCH (09:01)
[2022-10-10] MEDS: LACTULOSE 10 G/15 ML UDC (PYXIS) PO SCH ×4 (09:01→17:00)
[2022-10-10] MEDS: DIVALPROEX SODIUM 125 MG CAP.SPRINK PO SCH ×2 (09:01→21:00)
[2022-10-10] MEDS: BENAZEPRIL HCL 20 MG TABLET PO SCH (09:02)
[2022-10-10] MEDS: LINACLOTIDE 145 MCG PO SCH (09:03)
[2022-10-10] MEDS: FERROUS SULFATE (325 MG) 325 MG/TAB TABLET PO SCH ×3 (09:03→17:00)
[2022-10-10] MEDS: MULTIVIT W/MINERALS 1 TAB TABLET PO SCH (09:03)
[2022-10-10] MEDS: FUROSEMIDE 40 MG TABLET PO SCH (09:07)
[2022-10-10] MEDS: ASPIRIN 81 MG TAB.CHEW PO SCH (09:07)
--- NOTE | 2022-10-10 12:23 | NUR ---
KALEY Note: KALEY stated pt is not accepted to [facility] due to having a bad reputation. SW explained that [facility] SNF accepted and she was agreeable at this time.
--- NOTE | 2022-10-10 14:38 | NUR ---
KALEY SNF Referral: KALEY sent clinicals to Queenie leroy from [facility] ([phone]) for placement. KALEY sent H & P, progress notes, and medication list.
--- NOTE | 2022-10-10 14:40 | NUR ---
SNF Referral: KALEY sent clinicals to Silvia leroy from [facility] ([phone]) for placement. SW sent H & P, progress note, and medication list.
--- NOTE | 2022-10-10 14:42 | NUR ---
SNF Contact: SW spoke with Queenie leroy from [facility] ([phone]) who stated they cannot accept pt.
--- NOTE | 2022-10-10 15:16 | NUR ---
SNF Contact: SW spoke with Silvia leroy from [facility] ([phone]) who stated pt is accepted.
--- NOTE | 2022-10-10 15:46 | NUR ---
RN-CO: L HIP PAIN 05/31.
--- NOTE | 2022-10-10 15:49 | NUR ---
RN-CO: CLONOPIN 0.5 MG PO FOR RESTLESSNESS.
[2022-10-10 16:00] VITALS: BP 115/74
[2022-10-10] MEDS: SENNOSIDES 8.6 MG TABLET PO SCH (17:06)
[2022-10-10] MEDS: DOCUSATE SODIUM 100 MG CAPSULE PO SCH ×2 (17:06→18:00)
[2022-10-10 19:59] VITALS: BP 147/79
--- NOTE | 2022-10-10 20:03 | NUR ---
Pt c/o BLE pain 05/31. Dilaudid 8 mg po prn given as ordered. Will continue to monitor.
--- NOTE | 2022-10-10 21:10 | NUR ---
Post 1 hr Dilaudid effective. ND 10/31. RR 18. Will continue to monitor.
[2022-10-10] MEDS: ATORVASTATIN 10 MG TABLET PO SCH (21:39)
[2022-10-10] MEDS: TEMAZEPAM 7.5 MG CAPSULE PO PRN (21:40)
--- NOTE | 2022-10-10 21:44 | NUR ---
Pt c/o insomnia. Least restrictive measures ineffective. Restoril 7.5 mg po prn given as ordered. Will continue to monitor.
[2022-10-10] MEDS: QUETIAPINE FUMARATE 25 MG TABLET PO SCH (22:00)
--- NOTE | 2022-10-10 22:08 | NUR ---
Pt refused PM meds Depakote and Seroquel. Explained risk and benefits. Offered x 3 and still refused. Pt states, " I dont want those medications.". Will endorse to next shift.
--- NOTE | 2022-10-10 22:42 | NUR ---
Post 1 hr Restoril effective. Pt asleep in bed easy to arouse. Frequent visual check done for safety. Will continue to monitor.
[2022-10-11] MEDS: HYDROMORPHONE HCL 8 MG PO PRN ×4 (00:03→13:12)
--- NOTE | 2022-10-11 00:07 | NUR ---
Pt c/o BLE pain 05/31. RR 19. Dilaudid 8 mg po prn given as ordered. Will continue to monitor.
--- NOTE | 2022-10-11 01:10 | NUR ---
Post 1 hr Dilaudid effective. Pt asleep in bed easy to arouse. RR 17. NC 0/10. Frequent visual check done for safety. Will continue to monitor.
--- NOTE | 2022-10-11 04:25 | NUR ---
Pt c/o BLE pain 05/31. RR 18. Dilaudid 8 mg po prn given as ordered. Will continue to monitor.
--- NOTE | 2022-10-11 05:30 | NUR ---
Post 1 hr Dilaudid effective.Pt awake, RR 17. FL 0/10. Frequent visual check done for safety. Will continue to monitor. Will endorse to next shift
[2022-10-11] MEDS: PANTOPRAZOLE 40 MG TABLET.DR PO SCH ×2 (07:44→08:48)
[2022-10-11] MEDS: LEVOTHYROXINE SODIUM 137 MCG TABLET PO SCH (07:44)
[2022-10-11 08:00] VITALS: BP 141/91
--- NOTE | 2022-10-11 08:00 | NUR ---
RN-CO: PT IS VERY DEMANDING, LOUD, HYPERVERBAL AND GRANDIOSE . ALWAYS THREATENING TO [facility] FOR EVERYTHING.HOWEVER, SHE DENIED SUICIDAL AND HOMICIDAL IDEATION AND COMMAND HALLUCINATION.
[2022-10-11] MEDS: LINACLOTIDE 145 MCG PO SCH (08:44)
[2022-10-11] MEDS: MULTIVIT W/MINERALS 1 TAB TABLET PO SCH (08:44)
[2022-10-11] MEDS: DIVALPROEX SODIUM 125 MG CAP.SPRINK PO SCH (08:44)
[2022-10-11] MEDS: clonazePAM 0.5 MG TABLET PO PRN (08:44)
[2022-10-11] MEDS: LACTULOSE 10 G/15 ML UDC (PYXIS) PO SCH ×2 (08:44→13:00)
[2022-10-11] MEDS: POLYETHYLENE GLYCOL 3350 17 GM POWD.PACK PO SCH (08:44)
[2022-10-11 08:45] VITALS: BP 141/91
[2022-10-11] MEDS: FUROSEMIDE 40 MG TABLET PO SCH (08:45)
[2022-10-11] MEDS: FERROUS SULFATE (325 MG) 325 MG/TAB TABLET PO SCH (08:45)
[2022-10-11] MEDS: BENAZEPRIL HCL 20 MG TABLET PO SCH (08:45)
--- NOTE | 2022-10-11 08:45 | NUR ---
RN-CO: DILAUDID 8 MG PO GIVEN FOR GEN BODY PAIN 04/30
[2022-10-11] MEDS: ASPIRIN 81 MG TAB.CHEW PO SCH (09:00)
--- NOTE | 2022-10-11 09:09 | NUR ---
SW Discharge Plan: Patient will be discharged to usp facility [facility] [address], [place] [address]; ). Please arrange transportation at 1PM. Yard Cleaner spoke with Silvia manager of school at [facility]; ([phone]), who stated patient will be accepted today. Patient does not have any family to contact. Patient is alert and oriented x3 and is unable to plan for self-care. Patient denies any suicidal or homicidal ideations. Patient is aware and agreeable with discharge plans. Patient will continue to follow-up with (psychiatrist) Dr. Potter [address], [place] [address]; ([phone]) and (microfilm technician) Dr. Chavez [address], [place] [address]; ([phone]). Patient presents with euthymic and congruent mood.
--- NOTE | 2022-10-11 10:11 | NUR ---
RN-CO: PATIENT HAS NO ACUTE DISTRESS NOTED, MEDICALLY CLEARED FOR DISCHARGE BY DR COYNE,. DR BOOTH ORDERED TO DISCONTINUE HOLD AND DISCHARGE PATIENT TODAY TO [facility]. PATIENT DENIED SUICIDAL IDEATION AND HOMICIDAL IDEATION. DENIED COMMAND HALLUCINATION. ALL BELONGINGS AND VALUABLES WILL BE GIVEN BACK TO HER. NO FAMILY TO NOTIFIED. DISCHARGE PAPERS WERE EXPLAINED AND SHE VERBALIZED UNDERSTANDING. Addendum: 10/11/22 at 1432 by KHALIDA SWIFT RN RN-CO:PT REFUSED SKIN ASSESSMENT AND REFUSED TO SIGN THE DISCHARGE PAPERS EXCEPT THE PROPERTY FORM.
--- NOTE | 2022-10-11 10:30 | NUR ---
RN-CO: HARI CANAS PUT ME ON HOLD FOR 30 MIN WHEN I AM ABOUT TO GIVE THE REPORT. SW MADE AWARE.
--- NOTE | 2022-10-11 11:56 | NUR ---
RN-CO: REPORT WAS GIVEN TO DAVE GALINDO.
--- NOTE | 2022-10-11 12:21 | NUR ---
SW Note: Pt approached this credit underwriter and was verbally abusive towards this credit underwriter and was intimated this credit underwriter. SW attempted to explain to pt that she has a bad reputation with multiple facilities and that they do not want to accept her. Pt unable to understand. Pt had initially requested location in the [place]. SW explained that pt was accepted at [facility] and she was agreeable of this. However, later pt changed her mind due to her roommate influencing her that the facility is "horrible". Pt continues to argue with staff.
--- NOTE | 2022-10-11 13:14 | NUR ---
RN-CO: DILAUDID PO GIVEN FOR C/O HIP PAIN 04/30.
--- NOTE | 2022-10-11 13:47 | NUR ---
RN-CO: ALL VALUABLES , BUBBLE PACK MEDS, (COUNTED WITH ANOTHER RN) JEWELRIES , MONEY WERE GIVEN BACK TO HER. , PT SIGNED THE PROPERTY FORM. REPORT WAS GIVEN TO EMT AND DAVE GALINDO. PT VERBALIZED UNDERSTANDING ON ALL HER DISCHARGE PAPERS. PICKED UP BY AMBULANCE.
== END 2022-10-11 13:50 | DRG 885 ==
LOC: ER 23:12 → GPS 10-07 10:21 → UNDODISIN 10-11 13:50
PROVIDERS: ADMIT Nurse Practitioner Psychiatric/Mental Health; ATTEND Nurse Practitioner Acute Care
DX: F31.63 Bipolar disorder, current episode mixed, severe, without psychotic features (principal); I11.0 Hypertensive heart disease with heart failure; E86.0 Dehydration; K21.9 Gastro-esophageal reflux disease without esophagitis; F60.3 Borderline personality disorder; I50.9 Heart failure, unspecified; F19.90 Other psychoactive substance use, unspecified, uncomplicated; F60.89 Other specific personality disorders; Z59.00 Homelessness unspecified; Z73.6 Limitation of activities due to disability; E11.9 Type 2 diabetes mellitus without complications; E78.5 Hyperlipidemia, unspecified; E03.9 Hypothyroidism, unspecified; Z88.8 Allergy status to other drugs, medicaments and biological substances; Z91.199 Patient's noncompliance with other medical treatment and regimen due to unspecified reason; Z89.421 Acquired absence of other right toe(s); Z98.890 Other specified postprocedural states; Z79.899 Other long term (current) drug therapy; G89.4 Chronic pain syndrome; Z79.82 Long term (current) use of aspirin; D50.9 Iron deficiency anemia, unspecified
CPT/HCPCS: 36415; 80048-TC; 80061-TC; 80076-TC; 81001; 82565-TC; 82962-TC; 84443-TC; 85025-TC; 87081-TC; 97116-TC; 97530-TC; C9803; G0480

== ENCOUNTER 2024-06-17 19:57 | Inpatient (IN) | payer MEDICARE, OTHER ==
[~2024-06-17] VITALS: Ht 160 cm; Wt 77.1 kg
[~2024-06-17 19:57] MED LIST changes: +ACET-2605 PO; +ACET-868 PO; +ASPI-1169 PO; +BENA20TA9 PO; +BISA10SU11 RC; +CALC500T63 PO; -CLON2TAB11 PO; +DIPH25CA51 PO; +DOCU-141 PO; -DULO60CA45 PO; +FERR325T23 PO; +GUAI100S11 PO; +HYDR25SU33 RC; +LACT10SO3 PO; +LINA145C PO; +LOPE2TAB25 PO; +LORA-259 PO; +MAGN400O6 PO; +MULT-447 PO; +NA P133E RC; -OMEP40CA21 PO; +OXYC-128 PO; +OXYC10TA49 PO; +PANT40TA2 PO; +POLY17PO4 PO; +PSYL3.4P6 PO; +SENN-261 PO; -SULF1TAB48 PO; +TEMA15CA PO; -TRAZ150T75 PO
[2024-06-17] MEDS ORDERED: HYDR-3980 PO (21:36)
[2024-06-17] MEDS ORDERED: KETO10TA2 PO (21:36)
[2024-06-17] MEDS ORDERED: HYDROCODONE/APAP 10/325MG TABLET ONE (22:05)
[2024-06-17] MEDS: HYDROCODONE/APAP 10/325MG TABLET PO ONE (22:09)
[2024-06-18] MEDS ORDERED: ACETAMINOPHEN 325 MG TABLET PO PRN (10:00)
[2024-06-18] MEDS ORDERED: hydrALAZINE HCL IV 20 MG VIAL IV PRN (10:00)
[2024-06-18] MEDS ORDERED: ONDANSETRON HCL/PF 4 MG/2 ML VIAL IVP PRN (10:00)
[2024-06-18] MEDS ORDERED: HYDROCORTISONE ACETATE 25 MG/SUPP.RECT SUPP.RECT RC PRN (10:00)
[2024-06-18] MEDS ORDERED: CALCIUM CARBONATE 500 MG TAB.CHEW PO PRN ×2 (10:00→13:52)
[2024-06-18 10:03] LABS: BASOPHILS # (AUTO) 0.1 K/uL (0.0-0.2); BASOPHILS % (AUTO) 0.6 % (0.0-2.0); EOSINOPHILS # (AUTO) 0.2 K/uL (0.0-0.7); EOSINOPHILS % (AUTO) 1.8 % (0.0-6.0); HEMATOCRIT 49 % (33-45); LYMPHOCYTES # (AUTO) 1.8 K/uL (0.8-4.8); LYMPHOCYTES % (AUTO) 17.5 % (20.0-44.0); MEAN CORPUSCULAR HEMOGLOBIN 30 PG (26.0-33.0); MEAN CORPUSCULAR HGB CONC 33 g/dl (31.0-36.0); MEAN CORPUSCULAR VOLUME 92 fL (82-100); MONOCYTES # (AUTO) 0.5 K/uL (0.1-1.30); MONOCYTES % (AUTO) 4.8 % (2.0-12.0); NEUTROPHILS # (AUTO) 7.6 K/uL (1.8-8.9); NEUTROPHILS % (AUTO) 75.3 % (43.0-81.0); PLATELET COUNT (AUTO) 310 K/uL (150-450); RED BLOOD CELL COUNT(AUTO) 5.39 MIL/uL (4.0-5.2)
[2024-06-18 10:22] LABS: CALCIUM, SERUM 9.8 mg/dL (8.5-10.1); CARBON DIOXIDE 27 mmol/L (21-32); CHLORIDE 101 mmol/L (98-107); GLUCOSE 156 mg/dL (74-106); SODIUM SERUM 135 mmol/L (136-145); UREA NITROGEN, BLOOD 21 mg/dL (7-18)
[2024-06-18 10:31] LABS: ALANINE AMINOTRANSFERASE 53 U/L (12-78); ALBUMIN 3.3 g/dL (3.4-5.0); ALKALINE PHOSPHATASE 115 U/L (46-116); ASPARTATE AMINOTRANSFERASE 23 U/L (15-37); BILIRUBIN,TOTAL 0.5 mg/dL (0.2-1.0); TOTAL PROTEIN, SERUM 6.6 g/dL (6.4-8.2)
[2024-06-18 11:35] VITALS: BP 136/85; TEMP 97.7; O2SAT 96
[2024-06-18] MEDS: HYDROMORPHONE HCL 2 MG TABLET PO PRN (12:35)
[2024-06-18] MEDS: LORAZEPAM 1 MG TABLET PO PRN (15:30)
[2024-06-18] MEDS: diphenhydrAMINE HCL 25 MG CAPSULE PO PRN (15:30)
[2024-06-18 16:00] VITALS: BP 131/94; TEMP 97.5; O2SAT 96
[2024-06-18] MEDS: DOCUSATE SODIUM LIQ 100 MG/10 ML UDC PO SCH (17:00)
[2024-06-18] MEDS: FERROUS SULFATE (325 MG) 325 MG/TAB TABLET PO SCH (17:00)
[2024-06-18] MEDS ORDERED: DOCUSATE SODIUM 100 MG CAPSULE PO SCH (18:00)
[2024-06-18 20:00] VITALS: BP 120/77; TEMP 97.7; O2SAT 95
[2024-06-18] MEDS: HEPARIN SODIUM, PORCINE 5000 UNITS/1 ML VIAL SQ SCH (21:00)
[2024-06-18] MEDS: ATORVASTATIN 10 MG TABLET PO SCH (21:04)
[2024-06-18] MEDS: oxyCODONE HCL SR 20MG TAB.SR.12H PO SCH (21:13)
[2024-06-19] MEDS: LEVOTHYROXINE SODIUM 75 MCG TABLET PO SCH (07:37)
[2024-06-19] MEDS: PANTOPRAZOLE 40 MG TABLET.DR PO SCH (07:38)
[2024-06-19 07:52] LABS: PHOSPHORUS 3.3 mg/dL (2.5-4.9)
[2024-06-19 08:00] VITALS: BP 147/86; TEMP 97.9; O2SAT 98
[2024-06-19 08:08] LABS: BASOPHILS # (AUTO) 0.1 K/uL (0.0-0.2); BASOPHILS % (AUTO) 0.7 % (0.0-2.0); EOSINOPHILS # (AUTO) 0.2 K/uL (0.0-0.7); EOSINOPHILS % (AUTO) 2.3 % (0.0-6.0); HEMATOCRIT 46 % (33-45); LYMPHOCYTES # (AUTO) 1.6 K/uL (0.8-4.8); LYMPHOCYTES % (AUTO) 17.9 % (20.0-44.0); MEAN CORPUSCULAR HEMOGLOBIN 30 PG (26.0-33.0); MEAN CORPUSCULAR HGB CONC 33 g/dl (31.0-36.0); MEAN CORPUSCULAR VOLUME 92 fL (82-100); MONOCYTES # (AUTO) 0.6 K/uL (0.1-1.30); MONOCYTES % (AUTO) 6.4 % (2.0-12.0); NEUTROPHILS # (AUTO) 6.7 K/uL (1.8-8.9); NEUTROPHILS % (AUTO) 72.7 % (43.0-81.0); PLATELET COUNT (AUTO) 296 K/uL (150-450); RED BLOOD CELL COUNT(AUTO) 4.97 MIL/uL (4.0-5.2); RED CELL DISTRIBUTION WIDTH 13.7 % (11.5-15.0); WHITE BLOOD COUNT (AUTO) 9.2 K/uL (4.3-11.0)
[2024-06-19] MEDS: POLYETHYLENE GLYCOL 3350 17 GM POWD.PACK PO SCH (08:43)
[2024-06-19] MEDS: ASPIRIN 81 MG TAB.CHEW PO SCH (08:44)
[2024-06-19] MEDS: FUROSEMIDE 40 MG TABLET PO SCH (08:44)
[2024-06-19] MEDS: BENAZEPRIL HCL 20 MG TABLET PO SCH (08:44)
[2024-06-19 16:00] VITALS: BP 125/74; TEMP 98.4; O2SAT 94
[2024-06-19 16:31] LABS: CALCIUM, SERUM 9.2 mg/dL (8.5-10.1); CARBON DIOXIDE 19 mmol/L (21-32); CHLORIDE 105 mmol/L (98-107); GLUCOSE 89 mg/dL (74-106); POTASSIUM 4.7 mmol/L (3.5-5.1); SODIUM SERUM 138 mmol/L (136-145); UREA NITROGEN, BLOOD 24 mg/dL (7-18)
[2024-06-19 16:37] LABS: ALANINE AMINOTRANSFERASE 51 U/L (12-78); ALBUMIN 3.2 g/dL (3.4-5.0); ALKALINE PHOSPHATASE 107 U/L (46-116); ASPARTATE AMINOTRANSFERASE 38 U/L (15-37); BILIRUBIN,TOTAL 0.4 mg/dL (0.2-1.0); TOTAL PROTEIN, SERUM 6.2 g/dL (6.4-8.2)
[2024-06-19 20:00] VITALS: BP 128/81; TEMP 98.4; O2SAT 96
[2024-06-19 20:28] VITALS: BP 128/81; TEMP 98.4; O2SAT 100
[2024-06-20 07:30] VITALS: BP 129/86; TEMP 98.1; O2SAT 96
[2024-06-20] MEDS ORDERED: clonazePAM 1 MG TABLET PO PRN (10:00)
[2024-06-20 16:00] VITALS: BP 122/79; TEMP 97.2; O2SAT 96
[2024-06-20] MEDS: clonazePAM 1 MG TABLET PO SCH (17:16)
[2024-06-20 20:00] VITALS: BP_SYST 106; BP_SYST 124; BP_DIAS 71; BP_DIAS 82; TEMP 98.6; O2SAT 95; O2SAT 99
[2024-06-21 08:00] VITALS: BP 131/72; TEMP 97.6; O2SAT 94
[2024-06-21 16:00] VITALS: BP 113/79; TEMP 97.5; O2SAT 96
[2024-06-21 20:00] VITALS: BP 102/65; TEMP 98.2; O2SAT 95
[2024-06-21 20:43] VITALS: BP 102/69; TEMP 98.2; O2SAT 95
[2024-06-22 08:29] VITALS: BP 128/70; TEMP 97.5; O2SAT 100
[2024-06-22 20:00] VITALS: BP 97/67; TEMP 97.5; O2SAT 95
[2024-06-23 04:45] VITALS: BP 97/67; TEMP 97.5; O2SAT 95
[2024-06-23 08:00] VITALS: BP 115/71; TEMP 97.6; O2SAT 100
[2024-06-23 16:00] VITALS: BP 105/71; TEMP 97.8; O2SAT 94
[2024-06-23 20:12] VITALS: BP 107/69; TEMP 98.2; O2SAT 97
[2024-06-24 00:27] VITALS: BP 107/69; TEMP 98.2; O2SAT 95
[2024-06-24 07:00] VITALS: BP 126/78; TEMP 97.9; O2SAT 98
[2024-06-24] MEDS ORDERED: NA PHOS,M-B/NA PHOS,DI-BA 1 EA ENEMA RC PRN (10:00)
[2024-06-24] MEDS ORDERED: MAGNESIUM HYDROXIDE 30 ML UDC PO PRN (12:00)
[2024-06-24] MEDS ORDERED: MAGNESIUM HYDROXIDE 30 ML UDC PO SCH (12:00)
[2024-06-24 16:00] VITALS: BP 97/65; TEMP 97.9; O2SAT 97
[2024-06-24 20:00] VITALS: BP 93/73; TEMP 98.3; O2SAT 94
[2024-06-25 07:00] VITALS: BP 113/78; TEMP 98.4; O2SAT 96
[2024-06-25 16:00] VITALS: BP 91/70; TEMP 98.4; O2SAT 94
[2024-06-25 18:46] VITALS: BP 100/70; TEMP 98.4
[2024-06-25 20:00] VITALS: BP 106/69; TEMP 97.3; O2SAT 92
[2024-06-26 08:00] VITALS: BP 112/80; TEMP 98.2; O2SAT 98
[2024-06-26 20:00] VITALS: BP 99/60; TEMP 97.3; O2SAT 94
[2024-06-27 08:00] VITALS: BP 117/74; TEMP 97.5; O2SAT 97
[2024-06-27 20:24] VITALS: BP 86/62; TEMP 97.3; O2SAT 94
[2024-06-27 21:03] VITALS: BP 94/62; TEMP 97.9; O2SAT 96
[2024-06-28 08:00] VITALS: BP 120/72; TEMP 97.7; O2SAT 94
[2024-06-28 20:00] VITALS: BP 95/60; TEMP 97.6; O2SAT 95
[2024-06-29 08:00] VITALS: BP 109/71; TEMP 97.3; O2SAT 94
[2024-06-29 16:00] VITALS: BP 99/66; TEMP 97.3; O2SAT 94
[2024-06-29 20:00] VITALS: BP 101/57; TEMP 97.2; O2SAT 93
[2024-06-30 08:33] VITALS: BP_SYST 108; BP_SYST 117; BP_DIAS 64; BP_DIAS 76; TEMP 97.5; TEMP 97.7; O2SAT 97
[2024-06-30 16:08] VITALS: BP 100/65; TEMP 98.2; O2SAT 93
== END 2024-06-30 17:15 | DRG 641 ==
LOC: ER 20:17 → MED 06-18 10:20 → UNDODISIN 06-27 18:19
PROVIDERS: ADMIT Internal Medicine; ATTEND Internal Medicine
DX: R62.7 Adult failure to thrive (principal); Z59.00 Homelessness unspecified; K50.90 Crohn's disease, unspecified, without complications; E11.9 Type 2 diabetes mellitus without complications; Y92.9 Unspecified place or not applicable; Z79.82 Long term (current) use of aspirin; Z79.899 Other long term (current) drug therapy; Z79.890 Hormone replacement therapy; W19.XXXA Unspecified fall, initial encounter; Z79.891 Long term (current) use of opiate analgesic; F31.9 Bipolar disorder, unspecified; K59.03 Drug induced constipation; T40.2X5A Adverse effect of other opioids, initial encounter; F41.9 Anxiety disorder, unspecified; E03.9 Hypothyroidism, unspecified; G47.00 Insomnia, unspecified; I10 Essential (primary) hypertension; M20.10 Hallux valgus (acquired), unspecified foot; Z88.8 Allergy status to other drugs, medicaments and biological substances; F39 Unspecified mood [affective] disorder; S82.65XD Nondisplaced fracture of lateral malleolus of left fibula, subsequent encounter for closed fracture with routine healing; W19.XXXD Unspecified fall, subsequent encounter
CPT/HCPCS: 36415; 73610-TC; 73630-TC; 80053-TC; 83735-TC; 84100-TC; 85025-TC; 97110-TC; 97116-TC; 97164; 97530-TC; 97535-TC; G0378; J1644; Q0163

== ENCOUNTER 2024-07-03 20:29 | Emergency (ER) | payer MEDICARE, MEDICAID ==
[~2024-07-03] VITALS: Ht 160 cm; Wt 74.8 kg
[~2024-07-03 20:29] MED LIST changes: +HYDR-3980 PO; +KETO10TA2 PO
[2024-07-04 02:18] VITALS: BP 101/60; TEMP 98.4; O2SAT 99
== END 2024-07-04 02:20 | disposition home or self-care (01) ==
LOC: ER 20:48
DX: S82.492A Other fracture of shaft of left fibula, initial encounter for closed fracture (principal); G89.29 Other chronic pain; I10 Essential (primary) hypertension; E11.9 Type 2 diabetes mellitus without complications; K50.90 Crohn's disease, unspecified, without complications; Z86.79 Personal history of other diseases of the circulatory system; Z88.8 Allergy status to other drugs, medicaments and biological substances; X58.XXXA Exposure to other specified factors, initial encounter; Y93.89 Activity, other specified; Y92.89 Other specified places as the place of occurrence of the external cause; Y99.8 Other external cause status
CPT/HCPCS: 73610-TC; 73630-TC